=== PATIENT | female | born 1945 | race Caucasian/White ===

== ENCOUNTER 2022-12-10 09:45 | Outpatient (OUT) | payer MEDICARE, OTHER, SELFPAY ==
--- NOTE | 2022-12-10 10:04 | MM_ITS ---
Patient: MAICO JORDAN Exam Date: 12/10/2022 : 1945 Gender:F Ordering : DR Bull Charles D.O. Admission #: [id number] Family : Order #: [id number] CLICK HERE TO VIEW EXAM RADIOLOGY REPORT PROCEDURE: MM TOMOSYNTHESIS SCREENING BI COMPARISON: MG MAMM SCREEN 3D JOHNATHON CAD, 11/29/2021. MG MAMM LT DIAG FU, 12/07/2021. INDICATIONS: Screening Calculator Name NCI Breast Cancer Risk Assessment Tool 5 Year Breast Cancer Risk 1.20% Lifetime Breast Cancer Risk 2.20% Personal Breast Cancer No Personal Ovarian Cancer No Treatments Partial nephrectomy Family Cancers Mother with colon, liver cancer at age 62; Brother with prostate cancer at age 74. LOCATION: [facility] BREAST COMPOSITION: Scattered areas fibroglandular density. FINDINGS: DIAGNOSTIC CATEGORY 2--BENIGN FINDING. NO CHANGE FROM COMPARISON. Scattered benign-appearing calcifications are present. Scattered benign-appearing lymph nodes are present. RIGHT BREAST: No significant suspicious finding. LEFT BREAST: No significant suspicious finding. RECOMMENDATIONS: ROUTINE MAMMOGRAM AND CLINICAL EVALUATION IN 12 MONTHS. PLEASE NOTE: A NORMAL MAMMOGRAM DOES NOT EXCLUDE THE POSSIBILITY OF BREAST CANCER. A CLINICALLY SUSPICIOUS PALPABLE LUMP SHOULD BE BIOPSIED. Dictated by: Miguel Valadez MD on 12/10/2022 at 10:52 Approved by: Miguel Valadez MD on 12/10/2022 at 10:53
[2022-12-10 10:08] LABS: Basophils Percent Auto 0.8 % (0.2-2.0); Eosinophils Absolute Auto 0.1 10^3/uL (0.0-0.7); Eosinophils Percent Auto 2.1 % (0.9-7.0); Hematocrit 46.4 % (36.0-48.0); Immature Granulocytes Abs Auto 0.01 10^3/uL (0.00-0.03); Immature Granulocytes Pct Auto 0.2 % (0.0-0.5); Lymphocytes Percent Auto 21.2 % (20.5-60.0); Mean Corpuscular HGB Conc 32.3 g/dL (29.9-35.2); Mean Corpuscular Volume 86.7 fL (81.0-99.0); Mean Platelet Volume 9.9 fL (9.5-13.5); Monocytes Absolute Auto 0.4 10^3/uL (0.3-0.8); Monocytes Percent Auto 7.8 % (1.7-12.0); Neutrophils Absolute Auto 3.2 10^3/uL (1.4-6.5); Neutrophils Percent Auto 67.9 % (43.0-75.0); Platelet Count 224 10^3/uL (150-450); Red Blood Count 5.35 10^6/uL (4.20-5.40); Red Cell Distribution Width 13.4 % (11.0-15.0); White Blood Count 4.8 10^3/uL (4.0-11.0)
[2022-12-10 11:37] LABS: Alanine Aminotransferase 19 U/L (14-59); Anion Gap 8.8; BUN Creatinine Ratio 26.7; Calcium 9.2 mg/dL (8.5-10.1); Carbon Dioxide 27.9 mmol/L (21.0-32.0); Chloride 103 mmol/L (98-107); Chol HDL Ratio 1.7; Cholesterol 159 mg/dL (<=200); Estimated GFR (African America 55 (>=60); Estimated GFR (Non-African Ame 45 (>=60); Glucose 157 mg/dL (74-106); HDL Cholesterol 91 mg/dL (40-60); Potassium 4.7 mmol/L (3.5-5.1); Sodium 135 mmol/L (136-145); Triglycerides 57 mg/dL (<=150); VLDL CHOLESTEROL 11.4 mg/dL
== END 2022-12-10 09:46 | disposition home or self-care (01) ==
LOC: MAMMO 09:46
PROVIDERS: PCP Internal Medicine; Visit Provider Internal Medicine
DX: E10.42 Type 1 diabetes mellitus with diabetic polyneuropathy (principal); I10 Essential (primary) hypertension; E78.2 Mixed hyperlipidemia; Z79.899 Other long term (current) drug therapy; Z12.31 Encounter for screening mammogram for malignant neoplasm of breast; Z80.0 Family history of malignant neoplasm of digestive organs; Z80.42 Family history of malignant neoplasm of prostate
CPT/HCPCS: 36415; 77063; 77067; 80048; 80061; 82043; 84460; 85025

== ENCOUNTER 2023-01-11 11:18 | Outpatient (OUT) | payer MEDICARE, OTHER, SELFPAY ==
[2023-01-11 14:30] LABS: Estimated Average Glucose 166 mg/dL; Glycohemoglobin A1C 7.4 % (4.5-6.2)
== END 2023-01-11 11:19 | disposition home or self-care (01) ==
LOC: LAB 11:18
PROVIDERS: PCP Internal Medicine; Visit Provider Family Medicine
DX: E11.9 Type 2 diabetes mellitus without complications (principal); Z79.4 Long term (current) use of insulin
CPT/HCPCS: 36415; 83036

== ENCOUNTER 2023-01-17 15:20 | Emergency (ER) | payer MEDICARE, OTHER, SELFPAY ==
[2023-01-17 15:22] VITALS: BP 180/70; PULSE 84; RESP 20; TEMP 36.4; O2SAT 100; BMI 37.6
--- NOTE | 2023-01-17 15:25 | ECG_ITS ---
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
--- NOTE | 2023-01-17 15:25 | XR_ITS ---
The [address] [address] Patient Name: MAICO JORDAN MRN: [id number] date: 1945 Sex: F Assigned Patient Location: ED.MAIN Current Patient Location: ER Accession/Order Number: [id number] Exam Date: 01/17/2023 15:45 Report Date: 01/17/2023 16:06 At the request of: KILO CHEUNG Procedure: XR chest 1V EXAM: XR chest 1V at 1547 hours HISTORY: near syncope COMPARISON: 01/23/2022 TECHNIQUE: AP upright portable chest x-ray FINDINGS: The heart is not enlarged and the vasculature is not distended. There is been interval clearing of the left midlung since the prior study. No acute infiltrate, effusion or pneumothorax is identified. The osseous structures are grossly intact. XR/XR chest 1V IMPRESSION: No acute infiltrate or evidence of cardiac decompensation. Interval clearing of the left lung, the overall appearance is otherwise unchanged. Electronically authenticated by: LINDA GIRON Date: 01/17/2023 16:06
--- NOTE | 2023-01-17 15:25 | ED.DIZZY1 ---
HPI - Dizziness General Chief Complaint: Syncope Stated Complaint: Hypoglycemia Time Seen by Provider: 01/17/23 15:23 History of Present Illness HPI Narrative: 77-year-old female presents for a near syncopal episode. She was at home and she felt dizzy. She thinks her blood sugar was low but it wasn't checked. When the paramedics arrived she had eaten some ice cream and her blood sugar was normal. She states she did not pass out completely. She has no pain or dizziness now and feels much better. This happened just before coming into the emergency department. Related Data Allergies Allergy/AdvReac Type Severity Reaction Status Date / Time No Known Drug Allergies Allergy Verified 01/17/23 15:27 Review of Systems ROS Narrative A ten point review of systems is negative except as noted above. PFSH PFSH Social History Smoking status: Never smoker Exam Narrative Exam Narrative: Nurses note and vital signs reviewed and patient is not hypoxic. General: The patient appears in no apparent distress. Patient is resting on cart. Skin: Warm, dry, no pallor noted. There is no rash noted. Head: Normocephalic, atraumatic Eye: Normal conjunctiva, no drainage Ears, Nose, Mouth, and Throat: oral mucosa is moist. Nares patent. Mouth without vesicles. Ear canals patent. Tm's without Erythema Cardiovascular: Regular Rate and Rhythm Respiratory: Patient is in no distress, no accessory muscle use, lungs are clear to auscultation, no wheezing, rales or rhonchi Back: non-tender GI: nontender Musculoskeletal: The patient has no evidence of calf tenderness, no pitting edema, symmetrical pulses noted bilaterally Neurological: A&O x4, normal speech Psychiatric: Cooperative Constitutional Vital Signs, click to edit/add: Last Vital Signs Temp 97.6 F 01/17/23 15:22 Pulse 78 01/17/23 15:49 Resp 24 01/17/23 15:49 BP 114/62 01/17/23 15:49 Pulse Ox 100 01/17/23 15:49 O2 Del Method Room Air 01/17/23 15:22 Course Vital Signs Vital signs: Vital Signs Temperature 97.6 F 01/17/23 15:22 Pulse Rate 84 01/17/23 15:22 Respiratory Rate 20 01/17/23 15:22 Blood Pressure 180/70 H 01/17/23 15:22 Pulse Oximetry 100 01/17/23 15:22 Oxygen Delivery Method Room Air 01/17/23 15:22 Temperature 97.6 F 01/17/23 15:22 Pulse Rate 78 01/17/23 15:49 Respiratory Rate 24 01/17/23 15:49 Blood Pressure 114/62 01/17/23 15:49 Pulse Oximetry 100 01/17/23 15:49 Oxygen Delivery Method Room Air 01/17/23 15:22 MDM - Dizziness MDM Narrative Medical decision making narrative: The patient's blood sugar has normalized and she's eaten some food and feels much better now and is ambulatory. She is able to be discharged home. Findings are discussed with the patient and her two doctors. Differential Diagnosis Differential diagnosis: Likely orthostatic hypotension and other (hypoglycemia) Lab Data Attestation: I reviewed the patient's lab results. Labs: Lab Results 01/17/23 Range/Units 15:45 WBC 7.2 (4.0-11.0) 10^3/uL RBC 5.19 (4.20-5.40) 10^6/uL Hgb 15.0 (12.0-16.0) g/dL Hct 44.2 (36.0-48.0) % MCV 85.2 (81.0-99.0) fL MCH 28.9 (26.7-34.0) pg MCHC 33.9 (29.9-35.2) g/dL RDW 13.3 (11.0-15.0) % Plt Count 245 (150-450) 10^3/uL MPV 10.0 (9.5-13.5) fL Neut % (Auto) 65.8 (43.0-75.0) % Lymph % (Auto) 22.7 (20.5-60.0) % [place] % (Auto) 9.4 (1.7-12.0) % Eos % (Auto) 1.0 (0.9-7.0) % Baso % (Auto) 0.7 (0.2-2.0) % Neut # (Auto) 4.7 (1.4-6.5) 10^3/uL Lymph # (Auto) 1.6 (1.2-3.8) 10^3/uL [place] # (Auto) 0.7 (0.3-0.8) 10^3/uL Eos # (Auto) 0.1 (0.0-0.7) 10^3/uL Baso # (Auto) 0.1 (0.0-0.1) 10^3/uL Abs Immat Gran (auto) 0.03 (0.00-0.03) 10^3/uL Imm/Tot Granulo (auto) 0.4 (0.0-0.5) % Sodium 136 (136-145) mmol/L Potassium 3.5 (3.5-5.1) mmol/L Chloride 100 (98-107) mmol/L Carbon Dioxide 26.2 (21.0-32.0) mmol/L Anion Gap 13.3 BUN 31.0 H (7.0-18.0) mg/dL Creatinine 1.57 H (0.55-1.02) mg/dL Est GFR ( Amer) 39 L (>=60) Est GFR (Non-Af Amer) 32 L (>=60) BUN/Creatinine Ratio 19.7 Glucose 80 (74-106) mg/dL Calcium 9.6 (8.5-10.1) mg/dL Troponin I High Sens 20.6 (4.0-51.3) pg/mL ECG Data Attestation: I personally reviewed and interpreted this ECG as follows: (EKG on my interpretation shows sinus rhythm with first-degree block and no acute changes. Rate is 75.) Discharge Plan Discharge Chief Complaint: Syncope Clinical Impression: Hypoglycemia Patient Disposition: Home, Self-Care Time of Disposition Decision: 17:26 Condition: Good Mode of Transportation: Private Vehicle Instructions: Hypoglycemia in a Person with Diabetes (ED), What to Do if Your Blood Sugar is Low (ED) Stand Alone Forms: Portal Instructions Referrals: Bull Charles DO [Primary Care Provider] - 1 week
[2023-01-17 15:31] VITALS: PULSE 77; RESP 21
[2023-01-17 15:39] VITALS: PULSE 80
[2023-01-17 15:40] VITALS: PULSE 76; RESP 25
[2023-01-17 15:49] VITALS: BP 114/62; PULSE 78; RESP 24; O2SAT 100
[2023-01-17 15:54] LABS: Basophils Absolute Auto 0.1 10^3/uL (0.0-0.1); Basophils Percent Auto 0.7 % (0.2-2.0); Eosinophils Absolute Auto 0.1 10^3/uL (0.0-0.7); Hematocrit 44.2 % (36.0-48.0); Immature Granulocytes Abs Auto 0.03 10^3/uL (0.00-0.03); Immature Granulocytes Pct Auto 0.4 % (0.0-0.5); Lymphocytes Absolute Auto 1.6 10^3/uL (1.2-3.8); Lymphocytes Percent Auto 22.7 % (20.5-60.0); Mean Corpuscular HGB Conc 33.9 g/dL (29.9-35.2); Mean Corpuscular Hemoglobin 28.9 pg (26.7-34.0); Mean Corpuscular Volume 85.2 fL (81.0-99.0); Monocytes Absolute Auto 0.7 10^3/uL (0.3-0.8); Monocytes Percent Auto 9.4 % (1.7-12.0); Neutrophils Absolute Auto 4.7 10^3/uL (1.4-6.5); Neutrophils Percent Auto 65.8 % (43.0-75.0); Platelet Count 245 10^3/uL (150-450); Red Blood Count 5.19 10^6/uL (4.20-5.40); Red Cell Distribution Width 13.3 % (11.0-15.0); White Blood Count 7.2 10^3/uL (4.0-11.0)
--- NOTE | 2023-01-17 15:56 | PC.NURSE ---
Pt was at home and felt faint, so she lowered herself to the ground. Did not have a full syncopal episode. Called EMS herself. Is supposed to wear a Dex-Com, but was not wearing it today. BS for EMS 134.
[2023-01-17 16:13] LABS: Anion Gap 13.3; BUN Creatinine Ratio 19.7; Calcium 9.6 mg/dL (8.5-10.1); Carbon Dioxide 26.2 mmol/L (21.0-32.0); Chloride 100 mmol/L (98-107); Estimated GFR (African America 39 (>=60); Estimated GFR (Non-African Ame 32 (>=60); Glucose 80 mg/dL (74-106); Potassium 3.5 mmol/L (3.5-5.1); Sodium 136 mmol/L (136-145); Troponin I High Sensitivity 20.6 pg/mL (4.0-51.3)
--- NOTE | 2023-01-17 16:27 | PC.NURSE ---
Pt eating meal at this time in room. Family at bedside
--- NOTE | 2023-01-17 16:36 | PC.NURSE ---
Pt up using restroom at this time. Attempting to get urine sample
[2023-01-17] MEDS: ONDANSETRON PF 4 MG/2 ML VIAL IV (16:55)
== END 2023-01-17 17:45 | disposition home or self-care (01) ==
PROVIDERS: Emergency Provider Emergency Medicine; PCP Internal Medicine
DX: E11.649 Type 2 diabetes mellitus with hypoglycemia without coma (principal)
CPT/HCPCS: 36415; 71045; 80048; 81001; 82948; 84484; 85025; 93005; 96374; 99285

== ENCOUNTER 2023-10-09 09:32 | Outpatient (OUT) | payer MEDICARE, OTHER, SELFPAY ==
[2023-10-09 10:21] LABS: Basophils Absolute Auto 0.1 10^3/uL (0.0-0.1); Eosinophils Absolute Auto 0.1 10^3/uL (0.0-0.7); Eosinophils Percent Auto 2.2 % (0.9-7.0); Hematocrit 43.6 % (36.0-48.0); Immature Granulocytes Abs Auto 0.01 10^3/uL (0.00-0.03); Immature Granulocytes Pct Auto 0.2 % (0.0-0.5); Lymphocytes Percent Auto 20.2 % (20.5-60.0); Mean Corpuscular HGB Conc 32.1 g/dL (29.9-35.2); Mean Corpuscular Hemoglobin 28.7 pg (26.7-34.0); Mean Corpuscular Volume 89.5 fL (81.0-99.0); Mean Platelet Volume 10.3 fL (9.5-13.5); Monocytes Absolute Auto 0.4 10^3/uL (0.3-0.8); Monocytes Percent Auto 8.6 % (1.7-12.0); Neutrophils Absolute Auto 3.3 10^3/uL (1.4-6.5); Neutrophils Percent Auto 67.8 % (43.0-75.0); Platelet Count 228 10^3/uL (150-450); Red Blood Count 4.87 10^6/uL (4.20-5.40); White Blood Count 4.9 10^3/uL (4.0-11.0)
[2023-10-09 10:22] LABS: Estimated Average Glucose 146 mg/dL; Glycohemoglobin A1C 6.7 % (4.5-6.2)
[2023-10-09 11:09] LABS: Alanine Aminotransferase 15 U/L (14-59); Albumin Globulin Ratio 0.8; Albumin Level 2.6 g/dL (3.4-5.0); Alkaline Phosphatase 73 U/L (46-116); Anion Gap 7.8; Aspartate Amino Transferase 17 U/L (15-37); BUN Creatinine Ratio 24.6; Bilirubin Total 0.4 mg/dL (0.2-1.0); Calcium 8.8 mg/dL (8.5-10.1); Chloride 107 mmol/L (98-107); Chol HDL Ratio 1.7; Cholesterol 141 mg/dL (<=200); Estimated GFR (African America 56 (>=60); Estimated GFR (Non-African Ame 46 (>=60); Globulin 3.2 g/dL; Glucose 156 mg/dL (74-106); HDL Cholesterol 84 mg/dL (40-60); Potassium 4.8 mmol/L (3.5-5.1); Sodium 139 mmol/L (136-145); Total Protein 5.8 g/dL (6.4-8.2); Triglycerides 52 mg/dL (<=150); VLDL CHOLESTEROL 10.4 mg/dL
== END 2023-10-09 09:33 | disposition home or self-care (01) ==
LOC: LAB 09:32
PROVIDERS: PCP Internal Medicine; Visit Provider Internal Medicine Interventional Cardiology
DX: I12.9 Hypertensive chronic kidney disease with stage 1 through stage 4 chronic kidney disease, or unspecified chronic kidney disease (principal); N18.31 Chronic kidney disease, stage 3a; E78.2 Mixed hyperlipidemia; E11.22 Type 2 diabetes mellitus with diabetic chronic kidney disease; Z79.4 Long term (current) use of insulin; Z79.84 Long term (current) use of oral hypoglycemic drugs
CPT/HCPCS: 36415; 80053; 80061; 83036; 85025

== ENCOUNTER 2024-01-01 08:25 | Outpatient (RCR) | payer MEDICARE, SELFPAY | END 2024-02-01 11:58 | disposition home or self-care (01) | LOC: OT 08:25 | PROVIDERS: PCP Internal Medicine; Visit Provider Internal Medicine | DX: I89.0 Lymphedema, not elsewhere classified (principal); I87.2 Venous insufficiency (chronic) (peripheral) | CPT/HCPCS: 97140; 97166 ==

== ENCOUNTER 2024-01-09 09:52 | Outpatient (OUT) | payer MEDICARE, SELFPAY ==
--- NOTE | 2024-01-09 09:56 | MM_ITS ---
Patient Name: MAICO JORDAN MR#: [id number] : 1945 Exam Date: 01/09/2024 Ordering Doctor: DR Bull Charles D.O. RADIOLOGY REPORT PROCEDURE: MM TOMOSYNTHESIS SCREENING BI COMPARISON: MM TOMOSYNTHESIS SCREENING BI, 12/10/2022. MG MAMM LT DIAG FU, 12/07/2021. MG MAMM SCREEN 3D JOHNATHON CAD, 11/29/2021. MG MAMM JOHNATHON SCRN W CAD DIG, 09/03/2012. INDICATIONS: Screening for malignant neoplasm Calculator Name NCI Breast Cancer Risk Assessment Tool 5 Year Breast Cancer Risk 1.20% Lifetime Breast Cancer Risk 2.00% Personal Breast Cancer No Personal Ovarian Cancer No Treatments Partial nephrectomy Family Cancers Mother with colon, liver cancer at age 62; Brother with prostate cancer at age 74. LOCATION: [facility] BREAST COMPOSITION: There are scattered areas of fibroglandular density. FINDINGS: DIAGNOSTIC CATEGORY 1--NEGATIVE. RIGHT BREAST: No significant suspicious finding. No significant change has occurred. LEFT BREAST: No significant suspicious finding. No significant change has occurred. RECOMMENDATIONS: ROUTINE MAMMOGRAM AND CLINICAL EVALUATION IN 12 MONTHS. PLEASE NOTE: A NORMAL MAMMOGRAM DOES NOT EXCLUDE THE POSSIBILITY OF BREAST CANCER. A CLINICALLY SUSPICIOUS PALPABLE LUMP SHOULD BE BIOPSIED. Dictated by: Froilan Thurston M.D. on 01/09/2024 at 15:10 Approved by: Froilan Thurston M.D. on 01/09/2024 at 15:37
== END 2024-01-09 09:53 | disposition home or self-care (01) ==
LOC: MAMMO 09:53
PROVIDERS: PCP Internal Medicine; Visit Provider Internal Medicine
DX: Z12.31 Encounter for screening mammogram for malignant neoplasm of breast (principal); Z80.0 Family history of malignant neoplasm of digestive organs; Z80.8 Family history of malignant neoplasm of other organs or systems; Z80.42 Family history of malignant neoplasm of prostate
CPT/HCPCS: 77063; 77067

== ENCOUNTER 2024-10-05 10:06 | Outpatient (OUT) | payer MEDICARE, SELFPAY ==
--- OUTSIDE RECORDS SUMMARY | 2024-09-04 13:18 | XMS_ITS ---
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 10/14/2023 Admitting Diagnosis Other specified health status / Z78.9(ICD-10) [facility] 10/14/2023 Admitting Diagnosis Hypertensive chronic kidney disease with stage 1 through stage 4 chronic kidney disease, or unspecified chronic kidney disease / I12.9(ICD-10) [facility] 10/14/2023 Admitting Diagnosis Body mass index (BMI) 40.0-44.9, adult (Multi) / Z68.41(ICD-10) [facility] 01/09/2023 Admitting Diagnosis Mixed hyperlipidemia / E78.2(ICD-10) [facility] 01/09/2023 Admitting Diagnosis Essential (primary) hypertension / I10(ICD-10) [facility] 01/04/2023 Admitting Diagnosis Chronic kidney disease, stage 3a (Multi) / N18.31(ICD-10) [facility] 01/04/2023 Admitting Diagnosis Other custodial (current) drug therapy / Z79.899(ICD-10) [facility] 01/04/2023 Admitting Diagnosis Atrioventricular block, first degree / I44.0(ICD-10) [facility] 01/04/2023 Admitting Diagnosis Type 2 diabetes mellitus without complications (Multi) / E11.9(ICD-10) [facility] 01/04/2023 Admitting Diagnosis USP (current) use of insulin (Multi) / Z79.4(ICD-10) 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 01/04/2023 Admitting Diagnosis Lymphedema, not elsewhere classified / I89.0(ICD-10) [facility] 01/04/2023 Admitting Diagnosis Non-ST elevation (NSTEMI) myocardial infarction (Multi) / I21.4(ICD-10) [facility] 01/04/2023 Admitting Diagnosis Dependence on other enabling machines and devices / Z99.89(ICD-10) [facility] 01/04/2023 Admitting Diagnosis Paroxysmal atrial fibrillation (Multi) / I48.0(ICD-10) [facility] PROCEDURES No Procedure Records Found RESULTS ALLERGIES DATE TYPE / CODE NAME / CODE REACTION SEVERITY SOURCE SYSTEMIC/[id number]( SNOMED CT) NO KNOWN ALLERGIES [facility]ulatory ENCOUNTERS ADMIT/DISCHARGE ACCOUNT NUMBER ADMITTING ENCOUNTER CLASS LOCATION SOURCE 09/04/2024/ 5 [id number] [facility] 07/30/2024/ 5 [id number] Ambulatory Building:[facility] POD [facility] 05/25/2024/ 5 [id number] Ambulatory Building:[facility] 03/19/2024/ 4 [id number] Ambulatory Building:[facility] POD [facility] 02/14/2024/ 4 [id number] Ambulatory Building:[facility] 01/02/2024/ 4 [id number] Ambulatory Building:N[facility] CI POD [facility] 11/18/2023/ 4 [id number] Ambulatory Building:[facility] 10/14/2023/ 4 [id number] Ambulatory Building:[id number] Ambulatory PAYERS ENCOUNTER GUARANTOR PAYER SUBSCRIBER SOURCE 09/04/2024 MAICO CANTRELLOB: [id number] [address]Tov: () Primary Insurance:UNITED HEALTHCARE MEDICAREPolicy Number: [id number] Date:2024-05-30 MAICO SRINIVASANYDOB: [id number] [address] [address] [facility] EPIC 07/30/2024 MAICO FAYDOB: [id number], [place] [address]Xmr: (HP) Primary Insurance:UNITED HEALTHCARE MEDICAREPolicy Number: [id number] Date:2024-05-30 MAICO FAYDOB: [id number] [id number], [place] [address] [facility] EPIC 05/25/2024 MAICO FAYDOB: [id number], [place] [address]Fbq: (HP) Primary Insurance:[facility] MEDICARE ADVANTAGEPolicy Number: [id number] Date:2023-04-01 MAICO FAYDOB: [id number] [id number] [address] [facility] EP[facility] 03/19/2024 MAICO FAYDOB: [id number], [place] [address]Kos: (HP) Primary Insurance:[facility] MEDICARE ADVANTAGEPolicy Number: [id number] Date:2023-04-01 MAICO FAYDOB: [id number] [place] [id number], [place] [address] [facility] EP[facility] 02/14/2024 MAICO FAYDOB: [id number], [place] [address]Anc: (HP) Primary Insurance:HUMAN MEDICARE ADVANTAGEPolicy Number: [id number] Date:2023-04-01 MAICO FAYDOB: [id number] [id number], [place] [address] [facility] EP[facility] 01/02/2024 MAICO FAYDOB: [id number], [place] [address]Fxq: (HP) Primary Insurance:HU[employer] MEDICARE ADVANTAGEPolicy Number: [id number] Date:2023-04-01 MAICO FAYDOB: [id number] [id number], [place] [address] [facility] EP[facility] 11/18/2023 MAICO SRINIVASANYDOB: [id number] [id number] [address]Fyp: () Primary Insurance:HU[employer] MEDICARE ADVANTAGEPolicy Number: [id number] Date:2023-04-01 MAICO SRINIVASANYDOB: [id number] [place] [address] [facility] EP[facility] 10/14/2023 MAICO SRINIVASANYDOB: [address] [place], [place] [address]Kko: () Primary Insurance:HUMANA MEDICAREPolicy Number: [id number] Date:2023-04-01 MAICO SRINIVASANYDOB: [id number] [place], [place] [address]Dwc: () [facility]
[2024-10-05 11:03] LABS: Hematocrit 46.1 % (36.0-48.0); Hemoglobin 14.9 g/dL (12.0-16.0); Immature Granulocytes Abs Auto 0.01 10^3/uL (0.00-0.03); Immature Granulocytes Pct Auto 0.1 % (0.0-0.5); Lymphocytes Absolute Auto 0.9 10^3/uL (1.2-3.8); Mean Corpuscular HGB Conc 32.3 g/dL (29.9-35.2); Mean Corpuscular Hemoglobin 28.4 pg (26.7-34.0); Mean Corpuscular Volume 88.0 fL (81.0-99.0); Platelet Count 259 10^3/uL (150-450); Red Blood Count 5.24 10^6/uL (4.20-5.40); White Blood Count 6.7 10^3/uL (4.0-11.0)
[2024-10-05 11:05] LABS: Alanine Aminotransferase 16 U/L (14-59); Albumin Globulin Ratio 0.8; Albumin Level 2.7 g/dL (3.4-5.0); Alkaline Phosphatase 80 U/L (46-116); Anion Gap 9.2; Aspartate Amino Transferase 19 U/L (15-37); Blood Urea Nitrogen 28.0 mg/dL (7.0-18.0); Calcium 9.0 mg/dL (8.5-10.1); Carbon Dioxide 29.9 mmol/L (21.0-32.0); Chloride 105 mmol/L (98-107); Cholesterol 136 mg/dL (<=200); Estimated GFR (African America 54 (>=60 mL/min/1.73m^2); Estimated GFR (Non-African Ame 45 (>=60 mL/min/1.73m^2); Globulin 3.4 g/dL; Glucose 174 mg/dL (74-106); HDL Cholesterol 84 mg/dL (40-60); Potassium 5.1 mmol/L (3.5-5.1); Sodium 139 mmol/L (136-145); Total Protein 6.1 g/dL (6.4-8.2); Triglycerides 46 mg/dL (<=150); VLDL CHOLESTEROL 9.2 mg/dL
== END 2024-10-05 10:07 | disposition home or self-care (01) ==
LOC: LAB 10:07
PROVIDERS: PCP Internal Medicine
DX: E78.2 Mixed hyperlipidemia (principal); I12.9 Hypertensive chronic kidney disease with stage 1 through stage 4 chronic kidney disease, or unspecified chronic kidney disease
CPT/HCPCS: 36415; 80053; 80061; 85025

== ENCOUNTER 2025-02-10 10:22 | Outpatient (OUT) | payer MEDICARE, SELFPAY ==
--- NOTE | 2025-02-10 | MM_ITS ---
Patient Name: MAICO JORDAN MR#: [id number] : 1945 Exam Date: 02/10/2025 Ordering Doctor: DR TOMI REEDER D.O. RADIOLOGY REPORT PROCEDURE: MM TOMOSYNTHESIS SCREENING BI COMPARISON: MM TOMOSYNTHESIS SCREENING BI, 01/09/2024. MM TOMOSYNTHESIS SCREENING BI, 12/10/2022. MG MAMM LT DIAG FU, 12/07/2021. MG MAMM [place] SCRN W CAD DIG, 09/03/2012. INDICATIONS: ENCOUNTER FOR SCREENING MAMMOGRAM Calculator Name NCI Breast Cancer Risk Assessment Tool 5 Year Breast Cancer Risk 1.20% Lifetime Breast Cancer Risk 1.80% Personal Breast Cancer No Personal Ovarian Cancer No Treatments Partial nephrectomy Family Cancers Mother with colon, liver cancer at age 62; Brother with prostate cancer at age 74. LOCATION: [facility] BREAST COMPOSITION: There are scattered areas of fibroglandular density. FINDINGS: RIGHT BREAST: No significant suspicious finding. Similar benign-appearing calcifications are present. LEFT BREAST: No significant suspicious finding. DIAGNOSTIC CATEGORY 2--BENIGN FINDING. NO CHANGE FROM COMPARISON. RECOMMENDATIONS: ROUTINE MAMMOGRAM AND CLINICAL EVALUATION IN 12 MONTHS. Dictated by: Ghassan Lima MD on 02/10/2025 at 15:57 Approved by: Ghassan Liam MD on 02/10/2025 at 16:01
--- OUTSIDE RECORDS SUMMARY | 2025-02-10 10:24 | XMS_ITS | Clinical Summary ---
Author Organization [facility] Address [address] [facility] [address] [place] [address] Care Team Providers Care Arts [employer] Humanities Council Director Name Role Phone Unavailable Primary Care Provider Unavailabl e Source Comments The following information is NOT included in Care Everywhere downloads:Psychiatric notes, ECG results, Cardiac Rehab notes, Pulmonary Function notes, data from SmartForms (includes but not limited toPregnancy data,audiograms, eye exams, pre-surgical evaluation notes, well-child exam data).[facility] Immunizations ImmunizationAdministration DatesNext DueInfluenza, Injectable, MDCK, Quadrivalent, Preservative (QKU=365)12/25/2017Influenza, Injectable, Trivalent, Adjuvanted, Preservative Free (ZGV=322)01/29/2020Influenza, injectable, high dose seasonal, trivalent, preservative free (BFT=287)12/26/2016Moderna Monovalent (12+ yrs) COVID-19 vaccine, mRNA, spike protein, LNP, PF, 100 mcg/0.5 mL (WFA=903)01/25/2021,05/31/2020,05/03/2020 Social History Tobacco UseTypesPacks/DayYears UsedDateSmoking Tobacco: Never Assessed CommentsUnknownSex and Gender InformationValueDate RecordedSex Assigned at Not on fileLegal KipCaczur44/23/2021 5:06 PM ESTGender IdentityNot on fileSexual OrientationNot on file Plan of Treatment Health MaintenanceDue DateLast DoneCommentsTdap Ymsorge3605/13/1962Hepatitis A (HAV) Vaccine (optional start 19+ years)1963Tetanus (Td or Tdap) Booster 1963Pneumococcal Vaccine(s) (50+ yrs) (1 of 1 - PCV)1994Shingles (RZV) Vaccine (1 of 2)1994Hepatitis B (HBV) Vaccine (optional start 60+ years)2004Bone Irvdyxktfgjz49/12/2010RSV vaccine (adult) (1 - 1-dose 75+ series)2019Annual Wellness Visit (G0438)2COVID-19 Vaccine ( - 2024- season)/, 05/31/2020, 05/03/2020Influenza Vaccine (#1)/, 12/25/2017, 12/26/2016Pap SmearDiscontinued Insurance
--- OUTSIDE RECORDS SUMMARY | 2025-02-10 10:24 | XMS_ITS | Clinical Summary ---
Author Organization [facility] Healthcare Address [address] [place] [address] Care Team Providers Care Tube Coater Name Role Phone Bull Charles DO Primary Care Provider [phone] Allergies Active AllergyReactionsCriticalityNoted DateCommentsBeta Adrenergic Blockers 01/28/2022 Other Reaction(s): bradycardia ArnttghwnXpoutvf69/19/2024 Medications MedicationSigDispense QuantityRefillsLast FilledStart DateEnd DateStatus OLOPATADINE HCL NA Olopatadine HClActive Ascorbic Acid (Vitamin C) 500 MG capsule as directed OrallyActive oxybutynin XL (Ditropan-XL) 10 MG 24 hr tablet TAKE 1 TABLET BY MOUTH ONCE DAILY Oral for 30 DaysActive pravastatin (Pravachol) 80 MG tablet take 1 tablet by oral route every day OralActive spironolactone (Aldactone) 50 MG tablet 1 (one) time each day at the same time.Active valsartan (Diovan) 320 MG tablet 1 (one) time each day at the same time.Active hydroCHLOROthiazide (Microzide) 12.5 MG capsule Take 12.5 mg by mouth in the morning.12/17/2022ctive Docusate Sodium (DSS) 100 MG capsule Take 100 mg by mouth Daily as ckiojj8802/01/2022ctive Insulin Glargine Solostar 100 UNIT/ML solution pen-injector Inject 15 Units under the skin in the morning.02/01/2022ctive insulin aspart (NovoLOG) 100 UNIT/ML injection Indications:Type 2 diabetes mellitus with stage 3a chronic kidney disease, with long-term current use of insulin (HCC)Max dose 70 units a day 70 mL 5Active Lancets Ultra Thin 30G [facility] Indications:Type 2 diabetes mellitus without complication, with long-term current use of insulin ([facility])TEST BLOOD SUGAR IN THE MORNING, IN THE EVENING AND BEFORE BEDTIME. 300 each 5Active apixaban (Eliquis) 5 MG tablet Take 5 mg by mouth in the morning and 5 mg in the evening. Active Continuous Glucose Sensor (Dexcom G6 Sensor) [facility] Indications:Type 2 diabetes mellitus with stage 3a chronic kidney disease, with long-term current use of insulin ([facility])Wear subcutaneous every 10 days 9 each 5Active Continuous Glucose Transmitter (Dexcom G6 transmitter) [facility] Indications:Type 2 diabetes mellitus with stage 3a chronic kidney disease, with long-term current use of insulin ([facility])Use as instructed every 90 days 1 each 5Active Lancet Devices (Lancing Device) [facility] Indications:Type 2 diabetes mellitus with stage 3a chronic kidney disease, with long-term current use of insulin ([facility])Checking bg levels 3 times 1 each 5Active glucose blood (Contour Next Test) test strip Indications:Type 2 diabetes mellitus with stage 3a chronic kidney disease, with long-term current use of insulin ([facility])Use as instructed for 3 times day 300 each 508/6Active cholecalciferol (Vitamin D-3) 1.25 MG (94850 UT) capsule TAKE 1 CAPSULE BY MOUTH ON SATURDAY, SATURDAY, AND EUMIPN325Active Insulin Infusion Pump (T:slim Insulin Delivery System) device Indications:Type 2 diabetes mellitus with stage 3a chronic kidney disease, with long-term current use of insulin ([facility])Basal: 12A 1.25, 10A 1.5, ICR: 12A 15, ISF: 50, Target: 110 1 each 5Active Active Problems ProblemNoted DateDiagnosed DateType 2 diabetes mellitus with other circulatory hlygzqshfrjnq56/06/2025ASHD (arteriosclerotic heart disease)05/23/2023trial riwafgi0405/23/2023Elevated troponin level not due myocardial euhmlmugfq95/22/2024 Hyperlipidemia, mixed05/23/20236278Cmpqwnhiqjze12/22/2024Impaired mobility and activities of daily /22/2024Urinary odqztbxqzbrr36/22/2024UTI (urinary tract infection)05/23/2023Left posterior capsular wakoauniomchj41/09/2024Mild nonproliferative diabetic retinopathy of both eyes without macular edema associated with type 2 diabetes nymikrkl24/09/2024Type 2 diabetes mellitus with peripheral vascular wmwfrvu8402/16/2023 Assessment & Plan (01/10/2025 7:02 PM EDT): During the appointment today all pertinent labs, imaging, health maintenance, and glucose readings were reviewed. Encouraged to check blood glucose throughout the day with some fasting and some PP readings. They are to bring their glucose meter/cgm in to all appointments. All of the patients questions, treatment options, and current care plan and goals were discussed. Acopy of this along with pertinent instructions were given to the patient at the end of the appointment. The patient voices understanding of all of this and is to call in between appointments if they have any problems or questions. Porsche Helms control is stable overall. , The patient is wearing their cgm on a daily basis and making decisions in regards to adjusting insulin daily as well for at least the last 60 days , Discussed dietary changes at length. Encouraged to limit simple carbs and focus more on healthy protein/fat withall meals and snacks. They should also avoid any sugary drinks. , Instructed on the importance of taking insulin before eating. If it has been more than 30-45 min since eating they should not give the meal dose but should just give a correction insulin dose. , Instructions given today include: Pumpinstructions and Dietary education. Will increase basal rate at 12A and 10A. Assessment & Plan (09/04/2024 1:48 PM EDT): During the appointment today all pertinent labs, imaging, health maintenance, and glucose readings were reviewed. Encouraged to check blood glucose throughout the day with some fasting and some PP readings. They are to bring their glucose meter/cgm in to all appointments. All of the patients questions, treatment options, and current care plan and goals were discussed. Acopy of this along with pertinent instructions were given to the patient at the end of the appointment. The patient voices understanding of all of this and is to call in between appointments if they have any problems or questions. Porsche Helms is doing very well and encouraged on this. , Will stay on current medications. , The patient is wearing their cgm on a daily basis and making decisions in regards to adjusting insulin daily as well for at least the last 60 days , Instructions given today include: Hypoglycemia management and Pump instructions Assessment & Plan (05/25/2024 12:32 PM EST): During the appointment today all pertinent labs, imaging, health maintenance, and glucose readings were reviewed. Encouraged to check blood glucose throughout the day with some fasting and some PP readings. They are to bring their glucose meter/cgm in to all appointments. All of the patients questions, treatment options, and current care plan and goals were discussed. Acopy of this along with pertinent instructions were given to the patient at the end of the appointment. The patient voices understanding of all of this and is to call in between appointments if they have any problems or questions. Porsche Helms blood sugars are worsening. , The patient is wearing their cgm on a daily basis and makingdecisions in regards to adjusting insulin daily as well for at least the last 60 days , Instructions given today include: Pump instructions and Dietary education. Will increase basal rate at 12A and 4P. Assessment & Plan (02/14/2024 11:56 AM EST): During the appointment today all pertinent labs, imaging, health maintenance, and glucose readings were reviewed. Encouraged to check blood glucose throughout the day with some fasting and some PP readings. They are to bring their glucose meter/cgm in to all appointments. All of the patients questions, treatment options, and current care plan and goals were discussed. Acopy of this along with pertinent instructions were given to the patient at the end of the appointment. The patient voices understanding of all of this and is to call in between appointments if they have any problems or questions. Porsche Helms is doing very well and encouraged on this. , Will stay on current medications. , The patient is wearing their cgm on a daily basis and making decisions in regards to adjusting insulin daily as well for at least the last 60 days , Discussed dietary changes at length. Encouraged to limit simple carbs and focus more on healthy protein/fat with all meals and snacks. They should also avoid any sugary drinks. , Instructions given today include: Pump instructions and Dietary education. She isto add more protein to her diet. Overall doing very well. Assessment & Plan (11/18/2023 1:04 PM EDT): During the appointment today all pertinent labs, imaging, health maintenance, and glucose readings were reviewed. Encouraged to check blood glucose throughout the day with some fasting and some PP readings. They are to bring their glucose meter/cgm in to all appointments. All of the patients questions, treatment options, and current care plan and goals were discussed. Acopy of this along with pertinent instructions were given to the patient at the end of the appointment. The patient voices understanding of all of this and is to call in between appointments if they have any problems or questions. Porsche Helms control is stable overall. , The patient is wearing their cgm on a daily basis and making decisions in regards to adjusting insulin daily as well for at least the last 60 days , Instructionsgiven today include: Pump instructions and Dietary education. Instructed her on how to count carbs and she is to start putting these in the pump correctly. Loosened her carb ratio to prevent low bg. She is to get a Zang maribel to help with counting carbs as well. Assessment & Plan (05/23/2023 7:31 PM EST): During the appointment today all pertinent labs, imaging, health maintenance, and glucose readings were reviewed. Encouraged to check blood glucose throughout the day with some fasting and some PP readings. They are to bring their glucose meter/cgm in to all appointments. All of the patients questions, treatment options, and current care plan and goals were discussed. Acopy of this along with pertinent instructions were given to the patient at the end of the appointment. The patient voices understanding of all of this and is to call in between appointments if they have any problems or questions. Porsche Helms is doing very well and encouraged on this. , The patient is wearing their cgm on a daily basis and making decisions in regards to adjusting insulin daily as well for at least the last 60 days , Instructions given today include: Pump instructions. Pt wishes to stay on current settings as gets nervous about dropping low overnight. Wants to stay with dexcom G6 for now. Assessment & Plan (02/16/2023 12:19 PM EST): During the appointment today all pertinent labs, imaging, health maintenance, and glucose readings were reviewed. Encouraged to check blood glucose throughout the day with some fasting and some PP readings. They are to bring their glucose meter/cgm in to all appointments. All of the patients questions, treatment options, and current care plan and goals were discussed. Acopy of this along with pertinent instructions were given to the patient at the end of the appointment. The patient voices understanding of all of this and is to call in between appointments if they have any problems or questions. Porsche Helms control is stable overall. , The patient is wearing their cgm on a daily basis and making decisions in regards to adjusting insulin daily as well for at least the last 60 days , Instructed on the importance of taking insulin before eating. If it has been more than 30-45 min since eating they should not give the meal dose but should just give a correction insulin dose. , Instructions given today include: Hypoglycemia management and Pump instructions. Decrease basal rate at 9A and 4P. Tighten carb ratio for breakfast and loosen for lunch/dinner. Atrial fibrillation, currently in sinus ptzvtf0101/09/2023enign essential dothraouyapl61/11/2023Stage 3a chronic kidney disease (CKD)01/04/2023aroxysmal atrial ngaweuefryzw41/06/2023NSTEMI (non-ST elevated myocardial infarction) 01/04/2023Elevated troponin level01/04/2023First degree AV block01/04/2023High risk medication use01/04/2023Lymphedema of both lower ptmyfksgqxi98/06/2023Use of cane as ambulatory aid01/04/2023cquired hammer toe of left foot08/07/2022 Acquired hammer toe of right foot08/07/2022cquired lymphedema of lower srtwyedcv02/09/8806Tarpgvgepl99/09/2023Type 2 diabetes mellitus with stage 3a chronic kidney disease, with long-term current use of tjdwjfn6008/07/2022 Assessment & Plan (08/19/2023 11:29 AM EDT): During the appointment today all pertinent labs, imaging, health maintenance, and glucose readings were reviewed. Encouraged to check blood glucose throughout the day with some fasting and some PP readings. They are to bring their glucose meter/cgm in to all appointments. All of the patients questions, treatment options, and current care plan and goals were discussed. Acopy of this along with pertinent instructions were given to the patient at the end of the appointment. The patient voices understanding of all of this and is to call in between appointments if they have any problems or questions. Porsche Helms control is stable overall. , Will stay on current medications. , The patient is wearing their cgm on a daily basis and making decisions in regards to adjusting insulin daily as well for at least the last 60 days , Instructions given today include: Hypoglycemia management and Pump instructions. She is to update her pump so she can use dex[employer] G7. Peripheral venous cukcpjoryyswe67/09/2023Hypoglycemia due to type 2 diabetes veldzjrz51/03/2022Venous (peripheral) fmnslvbwyhymc08/02/2021lass 3 severe obesity due to excess calories with body mass index (BMI) of 40.0 to 44.9 in adult12/03/2019 Resolved Problems ProblemNoted DateDiagnosed DateResolved DateType 1 diabetes mellitus with fuancwhizycxv92/22/202402/4Diabetes mellitus treated with insulin and oral rfhhomodjw60/06/202302/Long-term insulin useMorbid ejvpspu00Type 2 diabetes mellitus without complications Assessment & Plan (01/07/2023 12:53 PM EDT): During the appointment today all pertinent labs, imaging, health maintenance, and glucose readings were reviewed. Encouraged to check blood glucose throughout the day with some fasting and some PP readings. They are to bring their glucose meter/cgm in to all appointments. All of the patients questions, treatment options, and current care plan and goals were discussed. Acopy of this along with pertinent instructions were given to the patient at the end of the appointment. The patient voices understanding of all of this and is to call in between appointments if they have any problems or questions. Porsche Helms control is stable overall. , Will stay on current medications. She is to continue to work on healthy eating and limiting sweets. Assessment & Plan (10/07/2022 5:54 PM EDT): During the appointment today all pertinent labs, imaging, health maintenance, and glucose readings were reviewed. Encouraged to check blood glucose throughout the day with some fasting and some PP readings. They are to bring their glucose meter/cgm in to all appointments. All of the patients questions, treatment options, and current care plan and goals were discussed. Acopy of this along with pertinent instructions were given to the patient at the end of the appointment. The patient voices understanding of all of this and is to call in between appointments if they have any problems or questions. Porsche Helsm is doing very well and encouraged on this. , Instructions given today include: Hypoglycemia management and Pump instructions. She is to make sure she gets protein with all meals and snacks to prevent reactive hypoglycemia. No changes to pump settings. Istjfzwa30/11/2022Long term current use of mtziueo56 Type 2 diabetes mellitus without tckrpkvovrumh28 Encounters DateTypeDepartmentCare HoqkIxgmfirqkez87/10/2025 1:30 PM EDTOffice Visit [facility] [address] [place] [phone] Irene Noble DO Mild nonproliferative diabetic retinopathy of both eyes without macular edema associated with type 2 diabetes mellitus (HCC) (Primary Dx); Type 2 diabetes mellitus with stage 3a chronic kidney disease, with long-term current use of insulin (HCC); Type 2 diabetes mellitus with peripheral vascular disease (HCC); Type 2 diabetes mellitus with other circulatory complications (HCC); Hypoglycemia due to type 2 diabetes mellitus (HCC); Class 3 severe obesity due to excess calories with serious comorbidity and body mass index (BMI) of40.0 to 44.9 in adult ([facility])01/08/2025amboo flowsheet [facility] [address] [place] [phone] Irene Noble DO 01/08/20254730Ezmcnv32/18/2025Telephone [facility] [address] [place] [phone] Aparna Dickey LPN PAP rec'd (Novolog (9))from Last 3 Months Immunizations ImmunizationAdministration DatesNext DueInfluenza, High Dose Seasonal, Preservative Free02/04/2024,12/26/2016Influenza, Seasonal, Quadrivalent, Sducsfpniw27/17/2022Influenza, Txmyzafdlmp16/04/2023,01/15/2022,03/02/2021, 01/29/2020,02/24/2019,12/25/2017,12/26/2016,02/15/2016Influenza, injectable, MDCK, rkiatvvmpgum02/26/2018Influenza, seasonal, yuklcmwjwt71/25/2022Influenza, trivalent, ivokllkxzp21/30/2020Moderna SARS-CoV-2 Booster Oirorcjurkr23/26/2021 Pneumococcal Conjugate PCV 13004/01/2019,08/24/2015Pneumococcal Polysaccharide UQPO7016,02/05/2007Td (adult), 5 Lf tetanus toxoid, preservative free, slocidfh84/10/2013Zoster, Fqwiakbduhx76/15/2023,10/18/2022 Family History Medical HistoryRelationNameCommentsNo Known ProblemsFatherCancerMotherColon and Liver; Migrated family historyColon cancerMotherLiver cancerMotherRelationName StatusCommentsBrother 1AliveBrother 2AliveBrother 3AliveBrother 4AliveDaughter 1 AliveDaughter 2AliveDaughter 3AliveFatherDeceasedMotherDeceasedSister 1Alive Sister 2AliveSister 3AliveSonAlive Social History Tobacco UseTypesPacks/DayYears UsedDateSmoking Tobacco: NeverSmokeless Tobacco: Never Tobacco Cessation:Counseling Given: Yes Alcohol UseStandard Drinks/WeekCommentsNever0 (1 standard drink = 0.6 oz pure alcohol)Caffeine Intake: 1-2 cups/dayAUDIT-CAnswerDate RecordedQ1: How often do you have a drink containing alcohol?Never01/08/2025Q2: How many drinks containing alcohol do you have on a typical day when you are drinking?Patient does not drink01/08/2025Q3: How often do you have six or more drinks on one occasion?Never01/08/2025PHQ-2AnswerDate RecordedPatient Health Questionnaire-2 Dotcs192CommentsUnknownSex and Gender InformationValueDate RecordedSex Assigned at BirthNot on fileLegal NsmNpykbv02/15/2023 6:42 PM EDT Gender IdentityNot on fileSexual OrientationNot on file Last Filed Vital Signs Vital SignReadingTime TakenCommentsBlood Qohkrdfq839/7201/08/2025 1:21 PM EDT Akeld738901/08/2025 1:21 PM XDTTnlnsaqaemm72.8 ??C (98.3 ??F)01/08/2025 1:21 PM EDTRespiratory Idxq804211/05/2024 1:31 PM EDTOxygen Uyaaoxjkgi40%01/08/2025 1:21 PM EDTInhaled Oxygen Concentration--Wqjnhk983 kg (255 lb)01/08/2025 1:21 PM EDT Voqnwe821.1 cm (5' 5 )01/08/2025 1:21 PM EDTBody Mass Index42.431 1:21 PM EDT Plan of Treatment DateTypeDepartmentCare Team (Latest Contact Info)Guxiblqsnyx83/20/2025 9:30 AM ESTOffice Visit [facility] [address] [place] [phone] Dwaine Randle, DPJune [address] [facility] [address] [place] [address] 2025 1:15 PM ESTOffice Visit [facility] [address] [place] [address] Irene Noble, [address] [place] [address] Procedures Procedure NamePriorityDate/TimeAssociated DiagnosisCommentsPOCT GLYCOSYLATED HEMOGLOBIN (HGB A1C)Lxtomam8101/08/2025 1:37 PM EDT Type 2 diabetes mellitus with stage 3a chronic kidney disease, with long-term current use of insulin (HCC) from Last 3 Months Results * POCT glycosylated hemoglobin (Hb A1C) docked device (01/08/2025 1:37 PM EDT) ComponentValueRef RangeTest MethodAnalysis TimePerformed AtPathologist SignatureHemoglobin A1C7.3Specimen (Source)Anatomical Location / Laterality Collection Method / VolumeCollection TimeReceived TimeBloodVenous blood specimen / Rafiorv0501/08/2025 1:37 PM EDT Narrative Authorizing ProviderResult TypeResult StatusAllmaximo Noble DOPOINT OF CARE TEST ENTER/EDIT ORDERABLESFinal Result from Last 3 Months Insurance Care Teams Team MemberRelationshipSpecialtyStart DateEnd Date Bull Charles DO [address] [facility] [place] [phone] PCP - GeneralInternal Medicine08/10/22
--- OUTSIDE RECORDS SUMMARY | 2025-02-10 10:25 | XMS_ITS | Clinical Summary ---
Author Organization [facility] Address [address] [place] [address], [address] [place] [address] Care Team Providers Care Regional Facilities Manager Name Role Phone Unavailable Primary Care Provider Unavailabl e Social History Tobacco UseTypesPacks/DayYears UsedDateSmoking Tobacco: Never Assessed CommentsUnknownSex and Gender InformationValueDate RecordedSex Assigned at Not on fileLegal NvnTvbdsa82/10/2013 12:48 PM ESTGender IdentityNot on file Sexual OrientationNot on file Plan of Treatment Not on file
--- OUTSIDE RECORDS SUMMARY | 2025-02-10 10:25 | XMS_ITS | Clinical Summary ---
Author Organization [employer] [facility] tem Address [id number] [place] [address] Care Team Providers Care Crm Marketing Analyst Name Role Phone Unavailable Primary Care Provider Unavailabl e Social History Tobacco UseTypesPacks/DayYears UsedDateSmoking Tobacco: Never AssessedChildcare AnswerDate DhsmunfqLfqpxwyaiNhpafuz87/12/2019EmploymentAnswerDate Recorded BwwiehrqolJgwokoy38/12/2019CommentsUnknownSex and Gender Information ValueDate RecordedSex Assigned at BirthNot on fileLegal EbpBniuof63/05/2015 5:26 PM EDTGender IdentityNot on fileSexual OrientationNot on file Plan of Treatment Health MaintenanceDue DateLast DoneCommentsDepression Agavjioza69/12/1957Tobacco Iblffjdch20/12/1957DTaP,Tdap and Td Vaccines (1 - Tdap)1963Zoster (Shingles) Vaccine (1 of 2)1994Fall Risk Fizkcmjqw43/12/2010RSV ( or age 60+ yrs) (1 - 1-dose 75+ series)2019Influenza Oqnricz2211/30/2024 Medical Devices Not on file
--- OUTSIDE RECORDS SUMMARY | 2025-02-10 10:25 | XMS_ITS | Clinical Summary ---
Author Organization [facility] Address [address] 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 SATURDAY, SATURDAY, AND CCFIZB5510/30/2022ctive NovoLOG U-100 Insulin aspart 100 unit/mL injection MAX DOSE 70 UNITS A DAY10/03/2022ctive hydroCHLOROthiazide (Microzide) 12.5 mg capsule Indications:Benign essential hypertensionTake 1 capsule (12.5 mg) by mouth once daily. 90 capsule ctive apixaban (Eliquis) 5 mg tablet Indications:Paroxysmal atrial fibrillation (Multi)Take 1 tablet (5 mg) by mouth 2 times a day. Qi2922i 04/2025 180 tablet ctive pravastatin (Pravachol) 80 mg tablet Indications:Mixed hyperlipidemiaTake 1 tablet (80 mg) by mouth once daily at bedtime. 90 tablet 307/30/898828/30/2026Active spironolactone (Aldactone) 50 mg tablet Indications:Benign essential hypertensionTake 1 tablet (50 mg) by mouth once daily. 90 tablet 5010/28/2025ctive valsartan (Diovan) 320 mg tablet Indications:Benign essential hypertensionTake 1 tablet (320 mg) by mouth once daily. 90 tablet 5010/28/2025ctive Active Problems ProblemNoted DateDiagnosed DateBMI 39.0-39.9,adult10/12/2024MI 40.0-44.9, adult 10/14/2023Hypertensive kidney yevqmsi7810/14/2023Never smoked ditplow8410/14/2023 prison current use of anticoagulant pqroldo4610/14/2023enign essential dfgmaorvluyd37/11/2023trial fibrillation, currently in sinus brrvux9801/09/2023 Cgjthgvzoicbjj72/11/2023aroxysmal atrial sjfmbznoqfxr04/06/2023Elevated troponin level01/04/2023Lymphedema of both lower jewzgtlbkcf05/06/2023Use of cane as ambulatory aid01/04/2023NSTEMI (non-ST elevated myocardial infarction) 01/04/2023iabetes mellitus treated with insulin and oral udombsynkn18/06/2023 First degree AV block01/04/2023High risk medication use01/04/2023Stage 3a chronic kidney disease (CKD)01/04/2023 Resolved Problems ProblemNoted DateDiagnosed DateResolved DateClass 2 obesity with body mass index (BMI) of 39.0 to 39.9 in adult Immunizations ImmunizationAdministration DatesNext DueFlu vaccine, trivalent, preservative free, HIGH-DOSE, age 65y+ (Fluzone)02/04/2024,12/26/2016Influenza, Seasonal, Quadrivalent, Gpwhbtdzcx12/17/2022Influenza, Mgdkuphppsa44/04/2023,01/15/2022, 03/02/2021,01/29/2020,02/24/2019,12/25/2017,12/26/2016,02/15/2016Influenza, injectable, MDCK, ztjoljbmdpoj63/26/2018Influenza, seasonal, injectable 01/23/2022Influenza, trivalent, hezajlwyrv15/30/2020Pneumococcal conjugate vaccine, 13-valent (PREVNAR 13)04/01/2019,08/24/2015Pneumococcal polysaccharide vaccine, 23-valent, age 2 years and older (PNEUMOVAX 23)04/01/2018,02/05/2007Td vaccine, age 7 years and older (TENIVAC)12/09/2012Zoster vaccine, recombinant, adult (SHINGRIX)02/13/2023,10/18/2022 Family History Medical HistoryRelationNameCommentsHeart failureBrotherHypertensionBrother Prostate cancerBrothercardiac disorderBrotherColon cancerMotherRelationName StatusCommentsBrotherMother Social History Tobacco UseTypesPacks/DayYears UsedDateSmoking Tobacco: NeverSmokeless Tobacco: NeverAlcohol UseStandard Drinks/WeekCommentsNever0 (1 standard drink = 0.6 oz pure alcohol)CommentsUnknownSex and Gender InformationValueDate Recorded Sex Assigned at BirthNot on fileLegal HdfVhgsuw10/25/2022 10:55 AM ESTGender IdentityNot on fileSexual OrientationNot on file Last Filed Vital Signs Vital SignReadingTime TakenCommentsBlood Xklooroa231/76010/12/2024 4:00 PM EDT Hlsvx468410/12/2024 4:00 PM EDTTemperature--Respiratory Rate--Oxygen Djpftnlpyn86% 01/10/2023 9:27 AM EDTInhaled Oxygen Concentration--Ggqcnu105 kg (251 lb 12.8 oz)10/12/2024 4:00 PM KJJXwegcn422.2 cm (5' 7 )10/12/2024 4:00 PM EDTBody Mass Index39.44010/12/2024 4:00 PM EDT Plan of Treatment DateTypeDepartmentCare Team (Latest Contact Info)Dreyywulzqa67/20/2026 3:30 PM EDTOffice Visit [facility] [address] [facility] [address] [place] [address] Tiara Islas MD [address] [facility] [address] [place], [place] [id number] Health MaintenanceDue DateLast DoneCommentsDiabetes: Hemoglobin A1C1944 Diabetes: Urine Protein Flkpuhsde48/12/1945Lipid Panel1944Medicare Annual Wellness Visit (AWV)1944Diabetes: Retinopathy Rnuqziiug27/12/1955 DTaP/Tdap/Td Vaccines (1 - Tdap)RSV High Risk: (Elderly (60+) or Population) (1 - 1-dose 75+ series)2019Bone Density Scan /Influenza Vaccine (#1)511/07/2023, 01/02/2023, 01/23/2022, Additional history existsCOVID-19 Vaccine (2024- season) /, 05/31/2020, 05/03/2020neumococcal VaccineCompleted 04/01/2019, 04/01/2018, 08/24/2015, Additional history existsZoster Vaccines Tvttvpwku39/15/2023, 10/18/2022HIB VaccinesAged OutNo longer eligible based on patient's age to complete this topicHPV VaccinesAged OutNo longer eligible based on patient's age to complete this topicHepatitis A VaccinesAged OutNo longer eligible based on patient's age to complete this topicHepatitis B VaccinesAged OutNo longer eligible based on patient's age to complete this topicIPV Vaccines Aged OutNo longer eligible based on patient's age to complete this topic Meningococcal VaccineAged OutNo longer eligible based on patient's age to complete this topicRotavirus VaccinesAged OutNo longer eligible based on patient's age to complete this topic Insurance Care Teams Team MemberRelationshipSpecialtyStart DateEnd Date Bull Charles DO [address] [place] [address] PCP - GeneralInternal Wsuxusnf54/4/23
== END 2025-02-10 10:23 | disposition home or self-care (01) ==
LOC: MAMMO 10:22
PROVIDERS: PCP Internal Medicine; Visit Provider Internal Medicine
DX: Z12.31 Encounter for screening mammogram for malignant neoplasm of breast (principal); Z80.0 Family history of malignant neoplasm of digestive organs; Z80.42 Family history of malignant neoplasm of prostate; Z80.8 Family history of malignant neoplasm of other organs or systems
CPT/HCPCS: 77063; 77067